=== PATIENT | female | born 1960 | race African-American/Black ===

== ENCOUNTER → 2017-03-31 | Outpatient (CLI) | payer BC ==
--- NOTE | ~2017-03-31 | CR230 ---
[facility] A Service of [facility] RADIOLOGY TEXT RESULTS PATIENT: DILLAN MOORE LOCATION: [facility] : 64 UNIT #: [id number] AGE: [address]: Carley Real MD SEX: F ORDER DR: [id number] [facility] [address] [place], [place] [address] [id number] O MR#: [id number] Acc #: [id number] NAME: DILLAN MOORE : 1960 SEX: F STUDY DATE/TIME: 03/31/2017 13:10 UNIT: [facility] ROOM: STUDY DESCRIPTION: CR Shoulder Min 2 View Rt Attending Physician: Carley Real M.D. Referring Physician: Carley Real M.D. Ordering Physician: Carley Real M.D. Primary Care Physician: Carley Real M.D. MEDICAL IMAGING REPORT This report is preliminary unless electronic signature is present EXAM Right shoulder 03/31/2017 HISTORY 56-year-old woman, neck and right shoulder pain. Pain radiates from neck into right shoulder, duration 6 months. COMPARISON STUDIES None. FINDINGS Internal and external rotation views of the right shoulder demonstrate a normal glenohumeral relationship. There is no subluxation. Cortex is intact and mineralization preserved. No calcium deposition. Degenerative arthropathy noted right acromioclavicular joint. Visualized right ribs unremarkable. IMPRESSION Chronic degenerative arthropathy right acromioclavicular joint. Otherwise, negative right shoulder. Dictated by... Brenton Willard M.D. THIS IS AN ELECTRONICALLY VERIFIED REPORT Brenton Willard M.D. at 04/03/2017 8:08 AM JOSE/marilee TD: 03/31/2017 20:00 JOB #: [id number] [facility] A Service of [facility] RADIOLOGY TEXT RESULTS PATIENT: DILLAN MOORE [facility] [id number] : 64 UNIT #: [id number] AGE: [address]: Carley Real MD SEX: F ORDER DR: MEDICAL IMAGING REPORT Page 1 of 1 COPY
--- NOTE | ~2017-03-31 | CR61 ---
[facility] A Service of [facility] & [facility] RADIOLOGY TEXT RESULTS PATIENT: DILLAN MOORE LOCATION: [facility] : 64 UNIT #: [id number] AGE: [address]: Carley Real MD SEX: F ORDER DR: [id number] [facility] [address] [place], [place] [address] [id number] O MR#: [id number] Acc #: [id number] NAME: DILLAN MOORE : 1960 SEX: F STUDY DATE/TIME: 03/31/2017 13:15 UNIT: [facility] ROOM: STUDY DESCRIPTION: CR Cervical Spine Min 5 Views Attending Physician: Carley Real M.D. Referring Physician: Carley Real M.D. Ordering Physician: Carley Real M.D. Primary Care Physician: Carley Real M.D. MEDICAL IMAGING REPORT This report is preliminary unless electronic signature is present EXAM Cervical series, 03/31/2017 INDICATIONS Radiculopathy in a 56-year-old female. Shoulder and neck pain extending from neck to the right shoulder for 6 months. No trauma. TECHNIQUE Lateral, bilateral oblique frontal open-mouth odontoid and dedicated odontoid views performed. No comparisons. FINDINGS Dens and lateral masses intact. Cervicothoracic junction intact. There is cervical straightening. Degenerative disc disease present in the mid to lower cervical levels. Alignment preserved. Soft tissues unremarkable. There is foraminal narrowing on the right at C6-7 and there is at least mild foraminal narrowing on the left at C3-4 and C6-7. Consider further evaluation with MRI. Faint atherosclerotic calcifications in the carotid systems are risk factor for stroke. There is uncovertebral spurring in the [id number] cervical levels. IMPRESSION 1. Degenerative changes but no acute fracture or malalignment. 2. Probable foraminal stenosis bilaterally as described. MRI may be complementary for further assessment. Dictated by... Calos Alfredo M.D. THIS IS AN ELECTRONICALLY VERIFIED REPORT Calos Alfredo M.D. at 04/03/2017 3:27 PM [facility] A Service of [facility] RADIOLOGY TEXT RESULTS PATIENT: DILLAN MOORE LOCATION: [facility] #: [id number] : 64 UNIT #: [id number] AGE: [address]: Carley Real MD SEX: F ORDER DR: RAF/edanna TD: 03/31/2017 22:29 JOB #: [id number] MEDICAL IMAGING REPORT Page 1 of 1 COPY
== END | disposition home or self-care (01) ==
LOC: CRAD 12:58
DX: M25.511 Pain in right shoulder (principal); M19.011 Primary osteoarthritis, right shoulder; M47.22 Other spondylosis with radiculopathy, cervical region
CPT/HCPCS: 72050; 73030

== ENCOUNTER → 2017-04-08 | Outpatient (CLI) | payer BC ==
--- NOTE | ~2017-04-08 | MR32 ---
[facility] A Service of [facility] RADIOLOGY TEXT RESULTS PATIENT: DILLAN MOORE LOCATION: [facility] : 64 UNIT #: [id number] AGE: [address]: Carley Real MD SEX: F ORDER DR: [id number] [facility] [address] [place], [place] [address] [id number] O MR#: [id number] Acc #: [id number] NAME: DILLAN MOORE : 1960 SEX: F STUDY DATE/TIME: 04/08/2017 8:59 UNIT: [facility] ROOM: STUDY DESCRIPTION: MR Cervical Wo Contrast Attending Physician: Carley Real M.D. Referring Physician: Carley Real M.D. Ordering Physician: Carley Real M.D. Primary Care Physician: Carley Real M.D. [facility]ENTER REPORT This report is preliminary unless electronic signature is present. EXAM MRI of the cervical spine without contrast, 04/08/2017 COMPARISON Plain film cervical spine, 03/31/2017 HISTORY Neck pain on the right side with pain radiating down the right arm and tingling in the right fingers for six months. FINDINGS Multi-sequence, multiplanar imaging of the cervical spine was obtained without contrast. Motion artifact limits evaluation. Disc osteophyte complex are at multiple levels. Cord demonstrates expected course, caliber and signal except at C6-7 where it is slightly displaced posteriorly due to disc disease. Pre and paravertebral soft tissues do not demonstrate any significant abnormality. C2-3: Mild disc bulge with mild left facet hypertrophic change. No canal stenosis or neural foraminal narrowing. C3-4: Concentric disc bulge with tiny central protrusion. No canal stenosis or significant neural foraminal narrowing. Mild bilateral facet changes. C4-5: Concentric disc bulge with tiny central protrusion. No canal stenosis or significant neural foraminal narrowing. C5-6: Concentric disc bulge with mild mass effect on the adjacent thecal sac. No significant neural foraminal narrowing. C6-7: Concentric disc bulge with superimposed right subarticular moderate STS. [facility] A Service of [facility] RADIOLOGY TEXT RESULTS PATIENT: DILLAN MOORE LOCATION: [facility] : 64 UNIT #: [id number] AGE: [address]: Carley Real MD SEX: F ORDER DR: protrusion/extrusion which extends towards the right foraminal and central region. Bilateral uncinate spurs are probably present too. There is moderate to severe canal stenosis, severe bilateral neural foraminal narrowing. C7-T1: Mild disc bulge with moderate right and mild left facet hypertrophic change. No canal stenosis. IMPRESSION 1. Degenerative changes are at multiple levels, worse at C6-7. 2. Central to right foraminal broad-based protrusion is present with probably an extruded component in the right subarticular region causing moderate canal stenosis. Cord is displaced posteriorly without obvious cord signal change. Severe bilateral neural foraminal narrowing. 3. Motion artifact is noted in multiple sequences limiting evaluation particularly the cord signal. No obvious significant cord signal true change is noted which is correlated in all the sequences. Dictated by... Ger Becker M.D. THIS IS AN ELECTRONICALLY VERIFIED REPORT Ger Becker M.D. at 04/10/2017 4:15 PM LALA/heri TD: 04/10/2017 11:45 JOB #: [id number] MRI CENTER REPORT Page 1 of 1 COPY
== END | disposition home or self-care (01) ==
LOC: CMRI 08:17
DX: M47.22 Other spondylosis with radiculopathy, cervical region (principal); M50.10 Cervical disc disorder with radiculopathy, unspecified cervical region
CPT/HCPCS: 72141